=== PATIENT | female | born 1955 | race Caucasian/White ===

== ENCOUNTER → 2020-09-12 15:09 | Outpatient (CLI) | payer MEDICARE, OTHER, SELFPAY ==
[2020-09-12 16:49] LABS: Influenza A - CEPHEID Flu A NEGATIVE (NEGATIVE); Influenza B - CEPHEID Flu B NEGATIVE (NEGATIVE)
[2020-09-12 18:07] LABS: COVID19 -Nasal RAPID Negative (Negative)
== END ==
PROVIDERS: Visit Provider Physician Assistant
DX: J02.9 Acute pharyngitis, unspecified (principal); R53.83 Other fatigue
CPT/HCPCS: 87502; 87635